=== PATIENT | female | born 1970 | race Asian ===

== ENCOUNTER 2018-08-13 09:53 | Emergency (ER) | payer OTHER ==
[2018-08-13 10:06] VITALS: BP 127/89
[2018-08-13] MEDS ORDERED: ACYCLOVIR 200 MG CAPSULE PO STA (11:12)
--- NOTE | 2018-08-13 11:16 | ED Physician Documentation ---
PD HPI SKIN - Stated complaint Stated Complaint: RASH ON LF HIP - Chief complaint Chief Complaint: Wound - History obtained from History obtained from: Patient - History of Present Illness Timing - onset: How many days ago (2) Timing - duration: Days (2) Timing - details: Still present Location: L[facility] Quality / character: Painful, Vesicular Associated symptoms: No: Fever Similar symptoms before: No diagnosis - Additional information Additional information: The patient is a 47-year-old female who presents with pain and itching on her left hip, onset 2 days ago. A rash has developed in the area. She also comp lains of pain in her left lower back. She denies fever, urinary incontinence, numbness or weakness. She denies dysuria or abdominal pain. She denies history of similar symptoms in the past. Review of Systems Constitutional: denies: Fever Nose: denies: Congestion Throat: denies: Sore throat Respiratory: denies: Dyspnea GI: denies: Abdominal Pain, Nausea, Vomiting : denies: Dysuria Skin: reports: Rash (left hip.) Musculoskeletal: reports: Back pain (left lower back.), Extremity pain (left hip.) Neurologic: denies: Focal weakness, Numbness, Headache PD PAST MEDICAL HISTORY - Past Medical History Past Medical History: Yes Cardiovascular: None Respiratory: None Neuro: Migraines Endocrine/Autoimmune: None GI: None FOREST OFFICER: Ovarian cysts : None HEENT: None Psych: None Musculoskeletal: None Derm: None - Past Surgical History Past Surgical History: Yes /FOREST OFFICER: Other - Present Medications Home Medications: Ambulatory Orders Medication Instructions Recorded Confirmed Acyclovir 200 mg PO 5XD #50 capsule 08/13/18 Hydrocodone/Acetaminophen 1 - 2 each PO Q6H PRN #14 tablet 08/13/18 [Hydrocodon-Acetaminophen 5-325] - Allergies Allergies/Adverse Reactions: Allergies Allergy/AdvReac Type Severity Reaction Status Date / Time amoxicillin [Amoxicillin] Allergy Unknown Verified 08/13/18 10:05 - Social History Does the pt smoke?: No Smoking Status: Never smoker Does the pt drink ETOH?: No Does the pt have substance abuse?: No - Immunizations Immunizations are current?: No Immunizations: TDAP >10years/unknown - POLST Patient has POLST: No PD ED PE NORMAL - Vitals Vital signs reviewed: Yes (normal) - General General: Alert and oriented X 3, Well developed/nourished - HEENT HEENT: Atraumatic, Pharynx benign - Neck Neck: Supple, no meningeal sign, No adenopathy - Cardiac Cardiac: RRR - Respiratory Respiratory: No respiratory distress, Clear bilaterally - Abdomen Abdomen: Soft, Non tender - Back Back: No CVA TTP, No spinal TTP - Derm Derm: Other (There is vesicular patch of rash on the left lateral hip, with the appearance of shingles. There is no surrounding cellulitis.) - Extremities Extremities: No edema, No calf tenderness / cord - Neuro Neuro: Alert and oriented X 3, No motor deficit, No sensory deficit Results - Vitals Vitals: Oxygen O2 Source Room air PD MEDICAL DECISION MAKING - ED course Complexity details: reviewed results, re-evaluated patient, considered differential, d/w patient ED course: The patient's presentation is most consistent with shingles. There is no clinical evidence to suggest cellulitis. Treatment in the emergency department included administration of acyclovir 200 mg orally. She is being discharged with a prescription for acyclovir and for Vicodin, 14 tablets. I discussed with her the expected course of illness, antiviral treatment and outpatient follow- up, as well as potentially worrisome signs or symptoms that should prompt reevaluation in the emergency department. Departure - Departure Disposition: 01 Home, Self Care Clinical Impression: Shingles Qualifiers: Herpes zoster complications: without complications Qualified Code(s): B02.9 - Zoster without complications Condition: Stable Instructions: ED Shingles [facility] Prescriptions: Acyclovir 200 mg PO 5XD #50 capsule Hydrocodone/Acetaminophen [Hydrocodon-Acetaminophen 5-325] 1 - 2 each PO Q6H PRN #14 tablet PRN Reason: pain Comments: Keep the rash covered. Take acyclovir 5 times daily as prescribed. You can use ibuprofen for its anti-inflammatory effect. You can use Vicodin as prescribed if needed for pain. Follow-up with your primary physician within 1-2 weeks. Call to schedule appointment. Return to the emergency department if you develop markedly increasing rash or pain, or otherwise worsening symptoms. Discharge Date/Time: 08/13/18 11:21
== END 2018-08-13 11:21 | disposition home or self-care (01) ==
LOC: ED 09:53
DX: B02.9 Zoster without complications (principal)
CPT/HCPCS: 99283; A9270